=== PATIENT | female | born 1995 | race Two or more races ===

== ENCOUNTER 2016-03-29 18:09 | Emergency (ER) | payer MEDICAID ==
[~2016-03-29] VITALS: Ht 157.5 cm; Wt 63.5 kg
[2016-03-29 18:34] VITALS: BP 121/78
[2016-03-29] MEDS ORDERED: ACETAMINOPHEN ES 500 MG TABLET PO ONE (19:00)
[2016-03-29] MEDS ORDERED: IBUPROFEN 400 MG TABLET PO ONE (19:00)
== END 2016-03-29 18:56 | disposition home or self-care (01) ==
LOC: ER 18:16
DX: S43.402A Unspecified sprain of left shoulder joint, initial encounter (principal); V49.9XXA Car occupant (driver) (passenger) injured in unspecified traffic accident, initial encounter; Y93.89 Activity, other specified; Y92.413 State road as the place of occurrence of the external cause; Y99.8 Other external cause status
CPT/HCPCS: 99283; A4606; Z7610

== ENCOUNTER 2016-05-15 21:18 | Emergency (ER) | payer MEDICAID ==
[~2016-05-15] VITALS: Ht 157.5 cm; Wt 70.8 kg
[2016-05-15 21:42] LABS: BASOPHILS % (AUTO) 0.3 % (0.0-2.0); DIFF TOTAL % 100 %; EOSINOPHILS # (AUTO) 0.1 /CMM (0.0-0.7); EOSINOPHILS % (AUTO) 1.5 % (0.0-6.0); HEMATOCRIT 34 % (33-45); HEMOGLOBIN 10.8 g/dL (11.5-14.8); LYMPHOCYTES # (AUTO) 2.6 /CMM (0.8-4.8); LYMPHOCYTES % (AUTO) 27.5 % (20.0-44.0); MEAN CORPUSCULAR HEMOGLOBIN 22 PG (26.0-33.0); MEAN CORPUSCULAR HGB CONC 32 g/dl (31.0-36.0); MEAN CORPUSCULAR VOLUME 70 fL (82-100); MONOCYTES # (AUTO) 0.6 /CMM (0.1-1.30); MONOCYTES % (AUTO) 6.3 % (2.0-12.0); NEUTROPHILS # (AUTO) 6.1 /CMM (1.8-8.9); NEUTROPHILS % (AUTO) 64.4 % (43.0-81.0); PLATELET COUNT (AUTO) 412 /CMM (150-450); RED BLOOD CELL COUNT(AUTO) 4.83 MIL/uL (4.0-5.2); WHITE BLOOD COUNT (AUTO) 9.4 K/uL (4.3-11.0)
[2016-05-15 22:06] LABS: CALCIUM, SERUM 8.6 mg/dL (8.5-10.1); CREATININE 0.7 mg/dL (0.6-1.3); POTASSIUM 3.4 mmol/L (3.5-5.1)
[2016-05-15 22:10] LABS: INR 0.99 (0.87-1.13); PROTHROMBIN TIME 10.7 SECS (9.5-12.7)
[2016-05-15 22:22] VITALS: BP 128/74
== END 2016-05-15 22:22 | disposition home or self-care (01) ==
LOC: ER 21:18
DX: N93.9 Abnormal uterine and vaginal bleeding, unspecified (principal); R79.1 Abnormal coagulation profile
CPT/HCPCS: 36415; 80048; 84703; 85025; 85730; 99284; A4606; Z7610

== ENCOUNTER 2023-08-14 21:24 | Emergency (ER) | payer MEDICAID, OTHER ==
[~2023-08-14] VITALS: Ht 160 cm; Wt 72.6 kg
[2023-08-14 23:56] VITALS: BP 142/79; TEMP 98.2; O2SAT 99
[2023-08-15 00:16] LABS: PREGNANCY TEST URINE QUAL NEGATIVE (NEGATIVE)
== END 2023-08-14 23:50 | disposition home or self-care (01) ==
LOC: ER 21:33
DX: B34.9 Viral infection, unspecified (principal); Z20.822 Contact with and (suspected) exposure to COVID-19
CPT/HCPCS: 84703-TC